=== PATIENT | male | born 1935 | race Caucasian/White ===

== ENCOUNTER 2018-12-12 18:25 | Inpatient (IN) ==
[2018-12-12 19:21] LABS: ALLEN TEST YES; BE -3.3 mmoll (-3.0-3.0); BLOOD TYPE ARTERIAL; HCO3-(ACT) 22.3 mmoll (20.0-26.0); METHB 1.4 % (0.0-1.5); O2(CT) 22.2 mL/dL (15.0-23.0); O2HB 96.9 % (95.0-99.0); PCO2(98.6) 48 mmHg (35-45); PO2(98.6) 277 mmHg (60-100); SAMPLE BLOOD; SAO2 99.4 % (95.0-100.0); THB 15.8 g/dL (11.5-17.4)
[2018-12-12 19:22] LABS: MODALITY NRB
--- NOTE | 2018-12-12 19:42 | Diag Imaging Result Doc PS360 ---
EXAM: CHEST-2 VIEWS HISTORY: SOB/CP TECHNIQUE: Chest two views COMPARISON: 06/02/2018 FINDINGS: The lungs are hyperexpanded. The heart is not enlarged. There are increased interstitial markings throughout both lungs. There are small pleural effusions. Left hemidiaphragm is elevated. IMPRESSION: Mild pulmonary edema with small pleural effusions Electronically signed by Devang Gamboa 12/12/2018 7:39 PM
[2018-12-12 20:09] LABS: BASO# 0.04 X1000 (0.0-0.2); BASO% 0.2 % (0.0-0.8); HEMATOCRIT 48.4 % (42.0-52.0); HEMOGLOBIN 15.4 g/dL (14.0-18.0); IMM GRAN# 0.47 X1000 (0.0-0.04); IMM GRAN% 2.1 % (0.0-0.5); LYMPH# 0.76 X1000 (1.2-3.4); LYMPH% 3.4 % (20.5-51.1); MCH 30.2 PG (27-31); MCHC 31.8 g/dL (33-37); MCV 94.9 FL (81-99); MONO# 0.71 X1000 (0.11-0.59); MONO% 3.1 % (1.7-9.3); MPV 10.5 FL (7.4-10.4); NEUT# 20.58 X1000 (1.4-6.5); NEUT% 91.2 % (42.2-75.2); PLT 334 X1000 (130-400); RDW 15.4 % (11.5-14.5); WBC 22.56 X1000 (4.8-10.8)
[2018-12-12 20:12] LABS: INR 0.97; PROTIME 13.7 Seconds (11.0-16.0)
[2018-12-12] MEDS ORDERED: ROCEPHIN 1 GM in NS 50 ML IV ONE (20:15)
[2018-12-12] MEDS ORDERED: LASIX IV ONE (20:16)
[2018-12-12] MEDS ORDERED: LABETALOL IV ONE (20:17)
[2018-12-12] MEDS ORDERED: NITROGLYCERIN TOP ONE (20:17)
[2018-12-12 20:27] LABS: ALB/GLOB RATIO 1.5; ALBUMIN 3.9 g/dL (3.5-5.0); CALCIUM 9.1 mg/dL (8.8-10.2); CREATININE 2.6 mg/dL (0.7-1.2); POTASSIUM 4.6 mmol/L (3.5-5.1); TOTAL BILIRUBIN 0.66 mg/dL (0.20-1.00); TOTAL PROTEIN 6.5 g/dL (6.3-8.3)
[2018-12-12] MEDS ORDERED: ASPIRIN PO ONE (20:42)
[2018-12-12 23:36] LABS: URINE SOURCE CATH
[2018-12-12 23:39] LABS: BILIRUBIN URINE NEGATIVE (NEGATIVE); BLOOD URINE SMALL (NEGATIVE); COLOR YELLOW; GLUCOSE URINE NEGATIVE (NEGATIVE); KETONE URINE NEGATIVE (NEGATIVE); LEUKOCYTES URINE NEGATIVE (NEGATIVE); NITRITE URINE NEGATIVE (NEGATIVE); PH URINE 5.5; PROTEIN URINE 200 mg/dL (NEGATIVE); SP GRAVITY URINE 1.009; TURBIDITY URINE CLEAR (CLEAR); UR EPITHELIAL CELLS <10 /HPF (<10); URINE BACTERIA NEGATIVE /HPF; URINE RBC <10 /HPF (<10); URINE WBC <10 /HPF (<10); UROBILINOGEN URINE NORMAL (NORMAL)
[2018-12-13 01:59] LABS: ACETAMINOPHEN < 1.2 ug/mL (10-30); SALICYLATES < 3.00 mg/dL (3-10)
[2018-12-13] MEDS ORDERED: LASIX IV SCH (02:09)
[2018-12-13] MEDS ORDERED: TYLENOL PO PRN (02:09)
[2018-12-13] MEDS ORDERED: ZOFRAN IV PRN (02:09)
[2018-12-13] MEDS ORDERED: TOPROL XL PO SCH (02:09)
[2018-12-13] MEDS: NITROGLYCERIN TOP SCH ×3 (02:34→19:49)
[2018-12-13] MEDS: ULTRAM PO PRN ×2 (02:35→16:27)
--- NOTE | 2018-12-13 02:43 | PROVIDER DOCUMENTATION ---
This chart was entered by Jaylin Jefferson Scribe, acting as scribe for Tessy Burgess MD. HPI-Respiratory General - General Chief Complaint: Shortness of Breath Stated Complaint: SOB, CP Time Seen by Provider: 12/12/18 19:51 Source: patient, family Allergies/Adverse Reactions: Patient Allergies Allergy/AdvReac Type Severity Reaction Status Date / Time Latex, Natural Rubber Allergy Unknown Verified 12/13/18 02:11 Home Medications: Home Medication List Medication Instructions Recorded Confirmed Last Taken Type Docusate Sodium [Colace] 100 mg PO QHS 06/02/18 06/02/18 05/31/18 22:00 History Fenofibrate Nanocrystallized 145 mg PO DAILY 06/02/18 06/02/18 Unknown History [Tricor] Gabapentin 100 mg PO QHS 06/02/18 06/02/18 05/31/18 22:00 History Prednisone 10 mg PO DAILY 06/02/18 06/02/18 06/01/18 07:00 History Amiodarone [Cordarone] 400 mg PO BID tablet 06/07/18 Unknown Rx Amlodipine [Norvasc] 5 mg PO DAILY tablet 06/07/18 Unknown Rx Aspirin 81 mg PO DAILY chewtab 06/07/18 Unknown Rx Losartan [Cozaar] 50 mg PO DAILY tablet 06/07/18 Unknown Rx Metoprolol [Lopressor] 25 mg PO Q8HR tablet 06/07/18 Unknown Rx Multivitamin with Minerals 5 ml PO DAILY bottle 06/07/18 Unknown Rx [Eldertonic] Quetiapine [Seroquel] 50 mg PO QHS tablet 06/07/18 Unknown Rx Thiamine [Vitamin B-1] 100 mg PO DAILY tablet 06/07/18 Unknown Rx Tramadol HCl 50 mg PO BID PRN #0 06/07/18 06/02/18 06/01/18 13:00 Rx - History of Present Illness-Resp Nature of Presenting Problem: 83 yom presents w/family w/ c/o family historian and at bedside. 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 family state pt is sob and has been since last night, mild lower cp 3/10, and swelling bilat feet and lower legs. pt has hx of ckd, spinal stenosis, and htn. family states pt was seen by pcp, Dr. Sharp today and was given compression socks and rx for water pills. Quality of Pain: reports: aching Severity in ED: reports: mild Onset/Duration: reports: last night Timing: reports: still present Review of Systems - Adult - REVIEW OF SYSTEMS - ADULT ROS:: ROS per family Constitutional: reports: no symptoms reported. denies: chills, fever, fatique Eyes: reports: no symptoms reported Ears, Nose, Mouth & Throat: reports: no symptoms reported. denies: hoarseness, throat pain, throat swelling Cardiovascular: reports: see HPI, chest pain (minimal). denies: heart murmur, irregular heart rate, orthopnea Respiratory: reports: see HPI, shortness of breath. denies: chronic cough, cough, pleurisy, wheezing Gastrointestinal: reports: no symptoms reported. denies: abdominal pain, diarrhea, nausea, vomiting Genitourinary: reports: no symptoms reported Musculoskeletal: reports: no symptoms reported Integumentary: reports: no symptoms reported Neurological: reports: no symptoms reported Past History - Adult - PAST MEDICAL HISTORY-ADULT Review of Records: reports: Old Records Reviewed, Nursing Assessment Review, Medications Reviewed, Social history reviewed & non-contributory. Major Childhood Illnesses: reports: denies history Cardiovascular: reports: arrhythmia, HTN, hyperlipidemia Respiratory: reports: denies history Gastrointestinal: reports: denies history Obstetrical/Gynecological: reports: denies history Genitourinary: reports: kidney disease, prostate cancer Musculoskeletal: reports: chronic pain Neurological: reports: TIA Psychiatric: reports: anxiety Endocrine/Immune: reports: denies history Other Conditions: reports: denies history - PRIOR SURGERIES/PROCEDURES Surgical/Procedure History: reports: back/neck, other (prostrate and carotoid) - IMMUNIZATION STATUS Childhood Immunizations: See Nurse Assessment Flu Vaccine: See Nurse Assessment - FAMILY HISTORY Family History: reviewed, not pertinent - SOCIAL HISTORY Smoking: quit greater than 1 year, cigarettes, chew (cigs) Substance Use: alcohol Alcohol Use Frequency: occasionally Physical Exam-General - PHYSICAL EXAM-ADULT Initial Vital Signs Reviewed: Yes - CONSTITUTIONAL General Appearance: alert, mild distress, other (Non rebreather in place). negative: slow to respond, obtunded, combative - EYES Eyes: PERRL/EOMI - HEAD, EARS, NOSE, MOUTH & THROAT HENMT: normocephalic/atraumatic, moist mucous membranes, normal ENT inspection - NECK Neck: non-tender, full range of motion, supple - RESPIRATORY Respiratory: crackles (B/L lower lung field). negative: lungs clear, respiratory distress, decreased breath sounds, accessory muscle use, wheezing - CARDIOVASCULAR Cardiovascular: normal peripheral pulses, no gallop, no murmur, JVD, tachycardia , other (bp high 210/128 at 1838). negative: regular rate, rhythm - GASTROINTESTINAL (ABDOMEN) Abdominal Exam: normal bowel sounds, non tender, soft - MUSCULOSKELETAL Back Exam: normal inspection, no CVA tenderness, no vertebral tenderness Extremity: normal range of motion, non-tender, pedal edema (+3 up to below knee B/L) Peripheral Pulses: radial (R): 2+, radial (L): 2+ - SKIN Integumentary: normal turgor, swelling (bilat feet and lower legs), other (cold B/L LE and feet) - NEUROLOGIC Neurologic: grossly normal, no motor/sensory deficits - PSYCHIATRIC Psych/Mental Status: oriented x 3 Progress - PLAN OF CARE/RESULTS Progress/Plan/Lab Results: Vital Signs - 8 hr 12/12/18 18:40 12/12/18 18:50 12/12/18 19:00 Pulse Rate 121 H 109 H 108 H Respiratory Rate 17 23 Blood Pressure O2 Sat by Pulse Oximetry 99 99 100 12/12/18 19:01 12/12/18 19:06 12/12/18 19:10 Pulse Rate 107 H 105 H 108 H Respiratory Rate 20 Blood Pressure 206/107 161/121 O2 Sat by Pulse Oximetry 100 100 100 12/12/18 19:17 12/12/18 19:20 12/12/18 19:35 Pulse Rate 104 H 103 H 103 H Respiratory Rate 20 26 H 12 Blood Pressure 176/102 O2 Sat by Pulse Oximetry 100 100 100 12/12/18 19:40 12/12/18 19:48 12/12/18 19:50 Pulse Rate 102 H 103 H 103 H Respiratory Rate 21 20 14 Blood Pressure 179/107 O2 Sat by Pulse Oximetry 99 99 98 12/12/18 20:00 12/12/18 20:01 12/12/18 20:10 Pulse Rate 100 H 99 H 98 H Respiratory Rate 21 17 20 Blood Pressure 186/102 O2 Sat by Pulse Oximetry 100 100 100 12/12/18 20:20 12/12/18 20:28 12/12/18 20:30 Pulse Rate 96 H 95 H 95 H Respiratory Rate 23 24 22 Blood Pressure 165/93 O2 Sat by Pulse Oximetry 100 100 100 12/12/18 20:36 12/12/18 20:40 12/12/18 20:46 Pulse Rate 96 H 96 H 94 H Respiratory Rate 23 20 21 Blood Pressure 179/104 165/98 O2 Sat by Pulse Oximetry 100 100 100 12/12/18 20:50 12/12/18 21:00 12/12/18 21:10 Pulse Rate 89 115 H 95 H Respiratory Rate 18 27 H 16 Blood Pressure O2 Sat by Pulse Oximetry 100 100 100 12/12/18 21:16 12/12/18 21:20 12/12/18 21:30 Pulse Rate 93 H 92 H 90 Respiratory Rate Blood Pressure 180/108 O2 Sat by Pulse Oximetry 100 100 100 12/12/18 21:31 12/12/18 21:40 12/12/18 21:46 Pulse Rate 84 85 88 Respiratory Rate Blood Pressure 156/94 161/88 O2 Sat by Pulse Oximetry 99 99 96 12/12/18 21:50 12/12/18 22:00 12/12/18 22:01 Pulse Rate 87 89 88 Respiratory Rate Blood Pressure 175/103 O2 Sat by Pulse Oximetry 98 98 98 12/12/18 22:10 12/12/18 22:20 12/12/18 22:30 Pulse Rate 87 93 H 86 Respiratory Rate Blood Pressure O2 Sat by Pulse Oximetry 100 94 L 99 12/12/18 22:31 12/12/18 22:40 12/12/18 22:46 Pulse Rate 87 89 88 Respiratory Rate Blood Pressure 168/108 179/104 O2 Sat by Pulse Oximetry 100 99 94 L 12/12/18 22:50 12/12/18 23:00 12/12/18 23:01 Pulse Rate 88 84 106 H Respiratory Rate Blood Pressure 150/106 O2 Sat by Pulse Oximetry 100 100 100 12/12/18 23:10 12/12/18 23:16 12/12/18 23:20 Pulse Rate 83 87 85 Respiratory Rate Blood Pressure 166/110 O2 Sat by Pulse Oximetry 94 L 99 100 12/12/18 23:21 12/12/18 23:30 12/12/18 23:31 Pulse Rate 88 85 86 Respiratory Rate Blood Pressure 169/103 176/97 O2 Sat by Pulse Oximetry 99 100 99 12/12/18 23:40 12/12/18 23:46 12/12/18 23:50 Pulse Rate 89 89 86 Respiratory Rate Blood Pressure 186/117 O2 Sat by Pulse Oximetry 98 99 99 12/13/18 00:00 12/13/18 00:01 12/13/18 00:10 Pulse Rate 84 83 86 Respiratory Rate Blood Pressure 170/92 O2 Sat by Pulse Oximetry 100 100 100 12/13/18 00:16 12/13/18 00:20 12/13/18 00:30 Pulse Rate 93 H 91 H 95 H Respiratory Rate Blood Pressure 175/125 O2 Sat by Pulse Oximetry 98 98 99 12/13/18 00:40 12/13/18 00:46 12/13/18 00:50 Pulse Rate 93 H 90 89 Respiratory Rate Blood Pressure 203/153 O2 Sat by Pulse Oximetry 98 96 99 12/13/18 01:00 12/13/18 01:01 12/13/18 01:03 Pulse Rate 86 84 86 Respiratory Rate Blood Pressure 201/124 200/110 O2 Sat by Pulse Oximetry 100 100 100 12/13/18 01:10 Pulse Rate 105 H Respiratory Rate Blood Pressure O2 Sat by Pulse Oximetry 99 Laboratory Results - last 24 hr 12/12/18 12/12/18 12/12/18 19:09 19:49 19:49 WBC 22.56 H RBC 5.10 Hgb 15.4 Hct 48.4 MCV 94.9 MCH 30.2 MCHC 31.8 L RDW Std Deviation 15.4 H Plt Count 334 MPV 10.5 H Immature Gran % (Auto) 2.1 H Neut % (Auto) 91.2 H Lymph % (Auto) 3.4 L [place] % (Auto) 3.1 Eos % (Auto) 0.0 Baso % (Auto) 0.2 Immature Gran # (Auto) 0.47 H Neut # (Auto) 20.58 H Lymph # (Auto) 0.76 L [place] # (Auto) 0.71 H Eos # (Auto) 0.00 Baso # (Auto) 0.04 PT INR PTT (Actin FS) Specimen Type ARTERIAL Sample Site R RADIAL pH 7.30 L pCO2 48 H pO2 277 H HCO3 22.3 Base Excess -3.3 L Oxyhemoglobin 96.9 ABG O2 Sat (Calculated) 22.2 ABG O2 Saturation 99.4 ABG Carboxyhemoglobin 1.10 ABG Methemoglobin 1.4 Andrei Test YES A-a O2 Difference 376.0 Total Hemoglobin 15.8 Lactate 1.30 Liter Flow 15.0 Blood Gas Modality NRB FiO2 % 100.0 Sodium 146 H Potassium 4.6 Chloride 108 H Carbon Dioxide 23 L Anion Gap 15 BUN 40 H Creatinine 2.6 H Estimated GFR/1.73 m2 24 BUN/Creatinine Ratio 15 Glucose 148 H Estimat Average Glucose Hemoglobin A1c Calculated Osmolality 303 Calcium 9.1 Magnesium Total Bilirubin 0.66 AST 39 H ALT 27 Alkaline Phosphatase 66 Creatine Kinase 104 Troponin T Age-X-Qkxbnebthgq Pept Total Protein 6.5 Albumin 3.9 Globulin 2.6 Albumin/Globulin Ratio 1.5 Urine Source Urine Color Urine Turbidity Urine pH Ur Specific [place] Urine Protein Ur Glucose (Stick) Ur Ketones (Stick) Urine Blood Urine Nitrite Urine Bilirubin Urobilinogen Dipstick Urine Leukocytes Urine WBC (Auto) Urine RBC (Auto) U Epithel Cells (Auto) Urine Bacteria (Auto) Salicylates Acetaminophen 12/12/18 12/12/18 12/12/18 19:49 19:49 19:49 WBC RBC Hgb Hct MCV MCH MCHC RDW Std Deviation Plt Count MPV Immature Gran % (Auto) Neut % (Auto) Lymph % (Auto) [place] % (Auto) Eos % (Auto) Baso % (Auto) Immature Gran # (Auto) Neut # (Auto) Lymph # (Auto) [place] # (Auto) Eos # (Auto) Baso # (Auto) PT 13.7 INR 0.97 PTT (Actin FS) 25.0 Specimen Type Sample Site pH pCO2 pO2 HCO3 Base Excess Oxyhemoglobin ABG O2 Sat (Calculated) ABG O2 Saturation ABG Carboxyhemoglobin ABG Methemoglobin Andrei Test A-a O2 Difference Total Hemoglobin Lactate Liter Flow Blood Gas Modality FiO2 % Sodium Potassium Chloride Carbon Dioxide Anion Gap BUN Creatinine Estimated GFR/1.73 m2 BUN/Creatinine Ratio Glucose Estimat Average Glucose Hemoglobin A1c Calculated Osmolality Calcium Magnesium Total Bilirubin AST ALT Alkaline Phosphatase Creatine Kinase Troponin T 0.179 H Tnx-G-Bmuktycfjau Pept 91849 H Total Protein Albumin Globulin Albumin/Globulin Ratio Urine Source Urine Color Urine Turbidity Urine pH Ur Specific [place] Urine Protein Ur Glucose (Stick) Ur Ketones (Stick) Urine Blood Urine Nitrite Urine Bilirubin Urobilinogen Dipstick Urine Leukocytes Urine WBC (Auto) Urine RBC (Auto) U Epithel Cells (Auto) Urine Bacteria (Auto) Salicylates Acetaminophen 12/12/18 12/12/18 12/12/18 19:49 21:15 22:45 WBC RBC Hgb Hct MCV MCH MCHC RDW Std Deviation Plt Count MPV Immature Gran % (Auto) Neut % (Auto) Lymph % (Auto) [place] % (Auto) Eos % (Auto) Baso % (Auto) Immature Gran # (Auto) Neut # (Auto) Lymph # (Auto) [place] # (Auto) Eos # (Auto) Baso # (Auto) PT INR PTT (Actin FS) Specimen Type Sample Site pH pCO2 pO2 HCO3 Base Excess Oxyhemoglobin ABG O2 Sat (Calculated) ABG O2 Saturation ABG Carboxyhemoglobin ABG Methemoglobin Andrei Test A-a O2 Difference Total Hemoglobin Lactate Liter Flow Blood Gas Modality FiO2 % Sodium Potassium Chloride Carbon Dioxide Anion Gap BUN Creatinine Estimated GFR/1.73 m2 BUN/Creatinine Ratio Glucose Estimat Average Glucose 126 Hemoglobin A1c 6.0 Calculated Osmolality Calcium Magnesium Total Bilirubin AST ALT Alkaline Phosphatase Creatine Kinase Troponin T 0.181 H Gss-Z-Mxrlmgyisse Pept Total Protein Albumin Globulin Albumin/Globulin Ratio Urine Source CATH Urine Color YELLOW Urine Turbidity CLEAR Urine pH 5.5 Ur Specific [place] 1.009 Urine Protein 200 A Ur Glucose (Stick) NEGATIVE Ur Ketones (Stick) NEGATIVE Urine Blood SMALL A Urine Nitrite NEGATIVE Urine Bilirubin NEGATIVE Urobilinogen Dipstick NORMAL Urine Leukocytes NEGATIVE Urine WBC (Auto) <10 Urine RBC (Auto) <10 U Epithel Cells (Auto) <10 Urine Bacteria (Auto) NEGATIVE Salicylates Acetaminophen 12/12/18 22:45 WBC RBC Hgb Hct MCV MCH MCHC RDW Std Deviation Plt Count MPV Immature Gran % (Auto) Neut % (Auto) Lymph % (Auto) [place] % (Auto) Eos % (Auto) Baso % (Auto) Immature Gran # (Auto) Neut # (Auto) Lymph # (Auto) [place] # (Auto) Eos # (Auto) Baso # (Auto) PT INR PTT (Actin FS) Specimen Type Sample Site pH pCO2 pO2 HCO3 Base Excess Oxyhemoglobin ABG O2 Sat (Calculated) ABG O2 Saturation ABG Carboxyhemoglobin ABG Methemoglobin Andrei Test A-a O2 Difference Total Hemoglobin Lactate Liter Flow Blood Gas Modality FiO2 % Sodium Potassium Chloride Carbon Dioxide Anion Gap BUN Creatinine Estimated GFR/1.73 m2 BUN/Creatinine Ratio Glucose Estimat Average Glucose Hemoglobin A1c Calculated Osmolality Calcium Magnesium 2.0 Total Bilirubin AST ALT Alkaline Phosphatase Creatine Kinase Troponin T Sok-V-Fbupfknzurc Pept Total Protein Albumin Globulin Albumin/Globulin Ratio Urine Source Urine Color Urine Turbidity Urine pH Ur Specific [place] Urine Protein Ur Glucose (Stick) Ur Ketones (Stick) Urine Blood Urine Nitrite Urine Bilirubin Urobilinogen Dipstick Urine Leukocytes Urine WBC (Auto) Urine RBC (Auto) U Epithel Cells (Auto) Urine Bacteria (Auto) Salicylates < 3.00 L Acetaminophen < 1.2 L Orders Category Date Time Status [facility] Routine AdmDCTranf 12/13/18 02:09 Active Activity - Up with Assistance ORDERED Care 12/13/18 02:09 Active Apply Mechanical Device [QM] ORDERED Care 12/13/18 02:09 Active Cardiac Monitoring DIRECTED Care 12/12/18 19:07 Completed Intake and Output-Strict ORDERED Care 12/13/18 02:09 Active Notify Primary MD of Admission ONCE Care 12/13/18 07:00 Active Nursing- Assist w/ IS as order [id number] Care 12/13/18 02:09 Active Nursing- MD Consult Request ROUTINE Care 12/13/18 02:09 Active Oxygen Therapy- ED Nursing DIRECTED Care 12/12/18 19:07 Completed Saline Loc NOW Care 12/12/18 19:07 Completed Vital Signs Order Q 4-HR ASSESS Care 12/13/18 02:09 Active Z-Document. for Tele Applied ORDERED Care 12/13/18 02:09 Active Physician/Provider Consults Routine Cons 12/13/18 07:00 Ordered Physician/Provider Consults Routine Cons 12/13/18 07:00 Ordered Heart Healthy Diet Diet 12/13/18 02:09 Active CHEST-2 VIEWS [RAD] Stat Exams 12/12/18 19:07 Completed A1C HGB W EST AVG GLUCOSE [CHEM] Stat Lab 12/13/18 01:13 Completed ABG [RESP] Routine Lab 12/12/18 19:09 Completed ACETAMINOPHEN [TDM] Stat Lab 12/13/18 01:13 Completed CBC WITH DIFF [HEME] Routine Lab 12/13/18 06:00 Ordered CBC WITH ELECTRONIC DIFF [HEME] Stat Lab 12/12/18 19:49 Completed CK PROFILE [SP CHEM] Q8H Lab 12/13/18 06:00 Ordered CK PROFILE [SP CHEM] Q8H Lab 12/13/18 14:00 Ordered CK PROFILE [SP CHEM] Q8H Lab 12/13/18 22:00 Ordered CK PROFILE [SP CHEM] Stat Lab 12/12/18 19:49 Completed COMPREHENSIVE METABOLIC PANEL [CHEM] Routine Lab 12/13/18 06:00 Ordered COMPREHENSIVE METABOLIC PANEL [CHEM] Stat Lab 12/12/18 19:49 Completed MAGNESIUM [CHEM] Routine Lab 12/13/18 06:00 Ordered MAGNESIUM [CHEM] Stat Lab 12/13/18 01:13 Completed PRO B-NATRIURETIC PEPTIDE Stat Lab 12/12/18 19:49 Completed PROTIME WITH INR [COAG] Stat Lab 12/12/18 19:49 Completed PTT [COAG] Stat Lab 12/12/18 19:49 Completed SALICYLATES [TDM] Stat Lab 12/13/18 01:13 Completed TROPONIN T Q8H Lab 12/13/18 06:00 Ordered TROPONIN T Q8H Lab 12/13/18 14:00 Ordered TROPONIN T Q8H Lab 12/13/18 22:00 Ordered TROPONIN T Stat Lab 12/12/18 19:49 Completed TROPONIN T Stat Lab 12/12/18 22:45 Completed UA [URINALYSIS W/POSS RFLX CULT] [URINALYSIS] Stat Lab 12/12/18 21:15 Completed Acetaminophen [Tylenol] Med 12/13/18 02:09 Active 650 mg PO Q6H PRN PRN Amlodipine [Norvasc] Med 12/13/18 02:09 Active 5 mg PO BID Aspirin Med 12/12/18 20:42 Discontinued 325 mg PO NOW ONE CefTRIAXONE [Rocephin] 1 gm Med 12/12/18 20:15 Discontinued 0.9% Sodium Chloride Inj [Ns] 50 ml IV NOW Furosemide [Lasix] Med 12/12/18 20:16 Discontinued 40 mg IV NOW ONE Furosemide [Lasix] Med 12/13/18 02:09 Active 40 mg IV Q8H Labetalol Med 12/12/18 20:17 Discontinued 5 mg IV NOW ONE Metoprolol Succinate E.r. [Toprol Xl] Med 12/13/18 02:09 Active 25 mg PO BID Nitroglycerin Med 12/12/18 20:17 Discontinued 1 inch TOP NOW ONE Nitroglycerin Med 12/13/18 02:09 Active 1 inch TOP Q8H Ondansetron [Zofran] Med 12/13/18 02:09 Active 4 mg IV Q8H PRN PRN Thiamine [Vitamin B-1] Med 12/13/18 09:00 Ordered 100 mg PO DAILY Tramadol [Ultram] Med 12/13/18 02:09 Active 50 mg PO Q12H PRN PRN Incentive Spirometer Routine Oth 12/13/18 02:09 Active Oxygen Device Routine Oth 12/13/18 02:09 Active Pulse Oximetry Routine Oth 12/13/18 02:09 Active Telemetry [OM.EQ] Routine Oth 12/13/18 02:09 Active EKG [EKG] Routine Ther 12/13/18 08:00 Ordered EKG [EKG] Stat Ther 12/12/18 19:07 Ordered Transfer/Admit Order [TRANSFER] Routine Transfer 12/12/18 23:32 Completed Result Diagrams: 12/12/18 19:49 12/12/18 19:49 - EKG 1 Time of EKG reading by physician:: 18:31 EKG Read and Signed by:: Brandon Vallejo EKG Interpretation (*Must complete 3 of following elements*): Abnormal Rate: 119 (left anterior fascicular block) Rhythm: ST QRS: RBB, LVH (lvh w/ repolarization abnormality) DC Interval: normal Comments: Bifascicular block,cannot rule out anteroseptal infarct, age undetermined - XRAY 1 XRAY: Bilateral XRAY Study: Chest ( EXAM: CHEST-2 VIEWS HISTORY: SOB/CP TECHNIQUE: Chest two views COMPARISON: 06/02/2018 FINDINGS: The lungs are hyperexpanded. The heart is not enlarged. There are increased interstitial markings throughout both lungs. There are small pleural effusions. Left hemidiaphragm is elevated. IMPRESSION: Mild pulmonary edema with small pleural effusions Electronically signed by Devang Gamboa 12/12/2018 7:39 PM) Impression: Abnormal Comparison with other Films: changes noted - CONSULTS/PCP/HOSPITALIST Notification #1 *Consult/PCP/Hospitalist*: Dr. Ritter Time Discussed: 00:34 Consult Disposition: Admit (Hx, PE and patient care discussed, accepted.) Departure - Departure Date of Disposition Decision: 12/13/18 Time of Disposition Decision: 00:34 DIAGNOSIS: Elevated troponin Pulmonary edema Qualifiers: Chronicity: acute Qualified Code(s): J81.0 - Acute pulmonary edema Leukocytosis Qualifiers: Leukocytosis type: other Qualified Code(s): D72.828 - Other elevated white blood cell count Disposition: ADMITTED INPATIENT 09 Certified Medical Emergency: Emergent Condition: Stable - Critical Care Note This patient required my direct & personal management of CC.: No Attestation - Physician/ CORINA Attestation Patient care was provided by Advanced Practice Provider:: No The physician spent face to face time with patient:: Yes Advanced Practice Provider documentation review:: Supervising physician onsite and consulted in the evaluation and care of this patient. The physician did have a face to face encounter with the patient. This chart was documented by the indicated scribe, (Jaylin Jefferson Scribe) and accurately reflects the services I performed and decisions made by me, Tessy Burgess MD, as attested by the provider's signature.
[2018-12-13] MEDS: NORVASC PO SCH ×2 (03:25→10:53)
[2018-12-13 05:38] LABS: BASO# 0.02 X1000 (0.0-0.2); BASO% 0.1 % (0.0-0.8); EOS# 0.01 X1000 (0.0-0.7); EOS% 0.1 % (0.0-10.0); HEMOGLOBIN 15.2 g/dL (14.0-18.0); IMM GRAN# 0.28 X1000 (0.0-0.04); IMM GRAN% 1.5 % (0.0-0.5); LYMPH# 0.66 X1000 (1.2-3.4); LYMPH% 3.5 % (20.5-51.1); MCH 30.5 PG (27-31); MCHC 32.3 g/dL (33-37); MCV 94.2 FL (81-99); MONO% 6.4 % (1.7-9.3); MPV 10.6 FL (7.4-10.4); NEUT# 16.68 X1000 (1.4-6.5); NEUT% 88.4 % (42.2-75.2); PLT 302 X1000 (130-400); RBC 4.99 XMIL (4.7-6.1); RDW 15.5 % (11.5-14.5); WBC 18.85 X1000 (4.8-10.8)
[2018-12-13 06:22] LABS: ALB/GLOB RATIO 1.6; ALBUMIN 3.9 g/dL (3.5-5.0); CALCIUM 9.3 mg/dL (8.8-10.2); CREATININE 2.4 mg/dL (0.7-1.2); POTASSIUM 4.1 mmol/L (3.5-5.1); TOTAL BILIRUBIN 0.75 mg/dL (0.20-1.00); TOTAL PROTEIN 6.4 g/dL (6.3-8.3)
--- NOTE | 2018-12-13 07:24 | HISTORY AND PHYSICAL ---
ADDENDUM: Mr. Alicia Peterson is an 83-year-old with male past medical history of atrial fibrillation, hypertensive heart disease and chronic low back pain. He was recently prescribed Medrol Dosepak over a week ago which he just completed. He has also been taking in addition to that, celz-oyg-rhfjntq Aleve to alleviate his low back pain. Not too long ago, patient was admitted because he was inappropriately taking his stronger opioid medication because he was confused and since then he has been cut off from taking such medications. The patient does voice concern that his pain has gotten worse since then and that is the reason why he has been taking excessive Aleve. The patient has also been complaining of shortness of breath, leg swelling and some PND and cough consistent with CHF. Exam shows 2 to 3+ pitting edema of the lower extremities with peripheral cyanosis and barely any palpable pulses in his distal lower extremities which are cool to touch. No JVD noted. Abdomen slightly protuberant. Chest is clear. 1st and 2nd heart sounds are heard. No gallops, murmurs, rubs. In hind site, I do think the combination of steroids and NSAIDs have culminated in this patient retaining a lot of salt and water. Hence, has a mild pulmonary edema and lower extremity edema. I would just suggest to Dr. Sharp that the patient may benefit from very low-dose fentanyl patch 12 mcg every 72 hours under lock and alanis and supervision, in addition to the other pain medications so they can just take the edge off his pain so he does not have to resort to taking an inordinate amount of Aleve which can cause the patient to induce exacerbation of CHF. cc: Samantha Ritter MD [facility]GERYRuben
--- NOTE | 2018-12-13 07:25 | EKG Report ---
Test Performed on : 12/13/2018 06:32:59 AM Test Reason : CHF Exacerbation Blood Pressure : / mmHG Vent. Rate : 083 BPM Atrial Rate : 083 BPM P-R Int : 158 ms QRS Dur : 136 ms QT Int : 382 ms P-R-T Axes : 063 -58 139 degrees QTc Int : 448 ms Normal sinus rhythm. Right bundle branch block Left anterior fascicular block Bifascicular block Voltage criteria for left ventricular hypertrophy Cannot rule out Anteroseptal infarct (cited on or before 26-JAN-2016) T wave abnormality, consider lateral ischemia Abnormal ECG When compared with ECG of 12-DEC-2018 21:20, (Unconfirmed) premature atrial complexes. are no longer present Questionable change in initial forces of Septal leads QT has shortened Confirmed by Inocencia JEAN BAPTISTE, Ryan ([id number]) on 12/13/2018 8:58:37 AM
[2018-12-13] MEDS ORDERED: ASPIRIN PO SCH (09:00)
--- NOTE | 2018-12-13 09:48 | HISTORY AND PHYSICAL ---
PRIMARY CARE PHYSICIAN: Dr. Rene Sharp. STAFF SCIENTIST: Dr. Palm. CHIEF COMPLAINT: Shortness of breath. HISTORY OF PRESENT ILLNESS: Mr. Peterson is an 83-year-old male who has a past medical history of atrial fibrillation, hypertension, hyperlipidemia, CVA, carotid artery disease, and chronic low back pain. The patient as well as his 2 sons who were at bedside reported that for a couple of weeks now he has had worsening swelling in his bilateral lower extremities. They also state that he has had increasing shortness of breath with exertion. The patient states that he does have to sit up to sleep though this is somewhat related to his chronic low back pain, though he states that he has noticed that he has been getting short of breath when he reclines back more. He is reporting orthopnea as just mentioned, paroxysmal nocturnal dyspnea, and dyspnea upon exertion. He states that when he becomes short of breath he has been having occasional chest pain that is in the center of his chest, is nonradiating, and he states that the pain just takes his breath away. The patient does have a history of having atrial fibrillation. Though his home medication list has not been reconciled yet, it does look like he takes rate control medications of metoprolol and amiodarone. It was noted in a cardiology progress note from his most recent admission in May and June of 2018 that they did not think the patient was a good candidate for anticoagulation secondary to he is a high fall risk. Upon further investigation, the patient does have chronic low back pain for which he previously took oxycodone, though due to some possible accidental over-medication use for which he may have reportedly been mixing with alcohol, he did have some hallucinations and confusion. This is one of the reasons why he was admitted in late 2018. They have taken him off of this medicine, and he has been on Ultram and has been substituting [id number] medicines of a couple of pills of Tylenol and a couple of pills of Aleve a day. He also has been receiving steroids to help with his pain, as well. He was taking 10 mg p.o. daily of prednisone though they did recently hold this, place him on a steroid pack, and he is to start his 10 mg of prednisone daily back in the next day or two. It could be that the patient's combination use of his steroids along with Aleve may be affecting his kidneys as well as is causing him to retain fluid. The patient also reports that he has had some decrease in his normal urine output, as well. He also reports that along with the swelling in his bilateral lower extremities that for approximately a week now he has had discoloration to his toes and heels of his feet. The patient states that he previously has had vascular studies of his bilateral lower extremities in January of 2016. An arterial study of bilateral lower extremities showed digital vessel disease. Upon evaluation in the ER, the patient's initial vital signs were temperature 98.3, heart rate 113, respirations 28, blood pressure was 210/134, oxygen saturation was 93% on a nonrebreather, though since that time he has been back down to a nasal cannula at 4 L and has been maintaining oxygen saturations of 99% to 100%. His blood pressure has also improved as well as his heart rate after being given labetalol, Lasix, and nitroglycerin. Diagnostic studies showed that he did have an elevated white blood cell count of 22,560, though he denies any cough, fever, body aches or chills or dysuria. He denies any abdominal pain, nausea, vomiting, or diarrhea. He has had recent steroid use. This could be secondary to that. His chemistries revealed that he does have acute on chronic kidney disease. He did have a proBNP of 28,306. His troponins were also elevated, as well, though he does have an acute kidney injury. He is denying any chest pain at present, and upon review of his EKG which showed sinus rhythm at this time with premature atrial complexes, a right bundle-branch block and a left anterior fascicular block, there did not appear to be any acute changes when compared to his EKG from June of 2018. At this time the patient will be admitted for further treatment and evaluation. REVIEW OF SYSTEMS: A 14-point review of systems was conducted with the patient. The patient denies any headache. He does report some visual changes, though he does have a history of cataract surgery, a retinal artery occlusion and does wear glasses, though he states there were no acute changes. He denies any cough, abdominal pain, nausea, vomiting, or diarrhea. His last bowel movement was yesterday. He denies any hematochezia or melena. He denies any dysuria, though does report he has had some decrease in his usual urine output. As previously mentioned, he also reports that he has chronic low back pain and does have new onset swelling in his bilateral lower extremities as well as discoloration of his toes and heels of bilateral feet. PAST MEDICAL HISTORY: 1. Hypertension. 2. Hyperlipidemia. 3. Carotid artery disease with a history of a carotid endarterectomy. 4. History of central retinal artery occlusion. 5. Cataracts. 6. Prostate carcinoma status post prostatectomy with 34 treatments of radiation. 7. Nephrolithiasis. 8. Lumbar spinal stenosis as well as herniated disk and degenerative disk disease. 9. History of old right parietal infarct for which the patient states that the only residual deficit from this stroke was some residual numbness in his left hand. 10. Atrial fibrillation with rate control medications of metoprolol and amiodarone, though it was noted in his admission of June 2018 the patient was deemed not a candidate for anticoagulation due to his high fall risk. PAST SURGICAL HISTORY: 1. Prostatectomy. 2. Low back surgery. 3. Carotid endarterectomy. 4. Cataract surgery bilaterally. 5. Surgery for repair of a retinal artery occlusion in his right eye. SOCIAL HISTORY: The patient is a former smoker. He quit smoking many years ago. There is some occasional alcohol use with reported previous more frequent alcohol use in the past. There is no known illicit drug use. His 2 sons at bedside state that the patient's back pain unfortunately was increasing, and they had placed him on oxycodone, and they stated that he was mixing the alcohol with oxycodone which caused him to have some acute confusion and hallucinations, though they state since that time he is not drinking as much as he previously did. The patient reports the last time he had any alcohol was a beer a few weeks ago and that he only has one drink at a time. He does live at home by himself, though his 2 sons do check on him frequently. They did state today that they have hired 2 sitters to come in hopefully a couple of times a week if not more frequently to help with his medicines and to check on him. FAMILY HISTORY: Family history is positive for his mother having a history of coronary artery disease. His father had a history of prostate cancer. ALLERGIES: The patient has allergies to latex, stating that it causes him to have skin irritation and rash. HOME MEDICATIONS: We are awaiting the patient's home medications to be verified, though we do know, as previously mentioned, that he does take Ultram for pain, prednisone, and his prednisone had recently been held, and he did just finish a Medrol Dosepak and was to start his prednisone back in the next day or two. He also reported that he had been using [id number] medications of a couple of pills or more a day of Aleve and Tylenol. DIAGNOSTIC STUDIES: White blood cell count is 22,560, hemoglobin 15.4, hematocrit 48.4, platelet count is 334. PT 13.7, INR 0.97, PTT is 25. Sodium 146, potassium 4.6, chloride 108, serum bicarbonate is 23, BUN 40, creatinine 2.6 with a GFR of 24, a glucose of 148, calcium 9.1. Liver function tests within normal limits, though his AST is slightly elevated at 39. CK 104, troponin 0.179 with a repeat of 0.181. ProBNP was 28,306. Arterial blood gases were obtained on a nonrebreather at 100% FiO2 with a pH of 7.3, pCO2 of 48, pO2 of 277, HCO3 of 22.3 with a base excess of negative 3.3. O2 saturation of 99.4. Urinalysis was obtained via catheter was positive for protein and a small amount of blood though was negative for glucose, ketones, nitrites, and bilirubin, leukocytes, white blood cells, or bacteria. EKG showed sinus rhythm with premature atrial complexes, possible left atrial enlargement, a right bundle-branch block, a left anterior fascicular block at a rate of 93 with a QTc of 527. Chest x-ray showed mild pulmonary edema with mild pleural effusions. This is per Radiology. PHYSICAL EXAMINATION: VITAL SIGNS: Temperature 98.3, heart rate is 87, respirations 20, blood pressure 166/110, oxygen saturation is 99% nasal cannula at 4 L. GENERAL: Mr. Peterson is a pleasant 83-year-old male who was resting in the ER stretcher. He was in no acute distress. He was alert and oriented to person, place, and time. He was able to answer questions appropriately, though his 2 sons did assist with answering of some past medical history. HEENT: Head atraumatic, normocephalic. Pupils are equal, round, reactive to light, were 3 mm bilaterally and brisk. Oral mucosa is moist. Oropharynx is clear. NECK: Supple, trachea midline. There may be some slight JVD noted upon examination. CARDIOVASCULAR: The patient has S1-S2 present. No murmurs, gallops, or rubs appreciated, with a regular rate and rhythm. PULMONARY: The patient has symmetrical chest expansion bilaterally. Lung sounds in bilateral upper mendoza were clear, though the patient did have very fine crackles noted in bilateral bases. ABDOMEN: Soft, does not appear to be distended. The patient does have a slightly protuberant abdomen noted. He did report some tenderness in the right mid abdominal area, though there was no rebound tenderness noted. Bowel sounds were present in all 4 quadrants, were normoactive. EXTREMITIES: There was no clubbing noted, though the patient does have 2+ to 3+ pitting edema noted in bilateral lower extremities from approximately mid calf down. He does have some cyanosis noted in his toes and heels of bilateral feet. His capillary refill is delayed at approximately 5, though pulses were difficult to palpate due to his swelling. With a venous Doppler, I was able to obtain a good dorsalis pedis in bilateral feet, though his posterior tibialis was not able to be obtained. Radial pulses are 2+ bilaterally. INTEGUMENTARY: Feet warm and dry except for previously mentioned discoloration/cyanosis noted to his toes and heels of bilateral feet. NEUROLOGICAL: The patient is alert and oriented to person, place, and time. He is able to answer questions appropriately. He is able to move all extremities. The patient does have some residual numbness in his left upper extremity from his previous stroke, but other than this, he does not have any new focal neurologic deficits noted. ASSESSMENT AND PLAN: 1. Congestive heart failure exacerbation. The patient has had a recent echocardiogram performed which was in July of 2018 for which he was noted to have an ejection fraction of 60%. He also had a myocardial perfusion scan performed at the same time which was noted to be within normal limits. There was no evidence of pharmacological-induced myocardial ischemia. There was normal left ventricle systolic function and no wall abnormalities. It looks as though he normally takes Lasix 20 mg twice a day orally. At this time, we have placed him with Lasix 40 mg IV q.8 h. We will do a series of cardiac enzymes, will repeat an EKG in the morning. We have placed a consult with Dr. Palm and will await his evaluation and further recommendations for management. He will be on a heart healthy diet. Will do strict intake and output and daily weights. The patient's heart failure exacerbation may have been brought on by his recent steroid use as well as his [id number] reported use of several Aleve daily. We will continue to follow his cardiovascular status closely. 2. Acute on chronic kidney disease. The patient does have what looks to be a baseline creatinine of anywhere from 1.9 to 2.1, though he has had an increase to 2.6 at this time. The patient reports that he has also noticed a decrease in his usual urine output. He does have symptoms as mentioned above. The patient has been reportedly taking Aleve, as well, up to several a day. This may be affecting his renal function. We will continue to monitor this closely. We will avoid nephrotoxic medications and renally dose medicines as necessary. 3. Hypertension. Will continue with his regularly prescribed medicines once reconciled, though we have added on Norvasc 5 mg p.o. b.i.d. as well as nitroglycerin topically. Since arriving to the ER, his blood pressure has continued to improve. 4. History of atrial fibrillation. The patient is in sinus rhythm with just showing occasional PACs. His rate is controlled. We will continue his regularly prescribed rate medicines. 5. Leukocytosis. This is of uncertain etiology. The patient at this time does not have a known source of infection. He does not have any fever. He denies any cough. He is not reporting any nausea, vomiting, diarrhea, or dysuria. The patient has had recent steroid use. This could be related to that. We will repeat a CBC in the morning and continue to follow. 6. Chronic low back pain. The patient has reported that he has been having increased pain. This is the reason he reports he has been taking several Tylenol and several Aleve daily. The patient may likely need his pain medications adjusted to better control his pain so that he does not use additional medicines such as Aleve over the counter. We will defer this for Dr. Sharp to decide what is best for the patient. 7. DVT prophylaxis will be provided with SCDs. The patient has been placed on the medical floor with telemetry. He will have vital signs q.4 h. Will do strict intake and output. He is on a healthy heart diet. Further orders and recommendations pending hospital course, diagnostic studies, and physician evaluation. cc: MD Rene Perez MD
[2018-12-13] MEDS: PREDNISONE PO SCH (10:53)
[2018-12-13] MEDS: CORDARONE PO SCH (10:53)
[2018-12-13] MEDS: VITAMIN B-1 PO SCH (10:53)
[2018-12-13] MEDS: ASPIRIN EC PO SCH (10:53)
[2018-12-13] MEDS: TRICOR PO SCH (10:53)
[2018-12-13] MEDS: TOPROL XL PO SCH (10:53)
--- NOTE | 2018-12-13 12:03 | EKG Report ---
Test Performed on : 12/12/2018 9:20:55 PM Test Reason : SOB/CP Blood Pressure : / mmHG Vent. Rate : 093 BPM Atrial Rate : 093 BPM P-R Int : 190 ms QRS Dur : 140 ms QT Int : 424 ms P-R-T Axes : 047 -61 088 degrees QTc Int : 527 ms Sinus rhythm. with premature atrial complexes. Possible Left atrial enlargement Right bundle branch block Left anterior fascicular block Bifascicular block Left ventricular hypertrophy Cannot rule out Septal infarct (cited on or before 26-JAN-2016) Abnormal ECG When compared with ECG of 04-JUN-2018 17:49, premature atrial complexes. are now present Questionable change in initial forces of Septal leads Nonspecific T wave abnormality no longer evident in Inferior leads Unconfirmed Result
[2018-12-13] MEDS: XANAX XR PO SCH (14:24)
--- NOTE | 2018-12-13 19:30 | CONSULTATION ---
DATE OF CONSULTATION: 12/13/2018 IMPRESSION: 1. Acute on chronic congestive heart failure with preserved left ventricular ejection fraction. Suspect excess sodium intake and chronic kidney disease stage 4 playing a significant role. 2. Dependent edema. Patient has difficulty lying flat due to problems with spinal stenosis prompting him to sleep with his feet in a dependent position quite often. 3. Hypertensive cardiovascular disease. 4. Chronic kidney disease stage 4. 5. Paroxysmal atrial fibrillation. Patient continues in sinus rhythm on low-dose amiodarone. 6. Prior cerebrovascular accident. 7. Atherosclerotic carotid disease. RECOMMENDATIONS: 1. Diurese with intravenous Lasix as you are doing. 2. Patient needs to elevate lower extremity to help improve dependent edema. 3. Patient counseled regarding need to avoid nonsteroidal anti-inflammatory medications and limit sodium intake. 4. Continue current cardiovascular regimen. Otherwise, unchanged including low-dose amiodarone. HISTORY: This 83-year-old white male with past history of paroxysmal atrial fibrillation, hypertensive cardiovascular disease, chronic kidney disease stage 4, hyperlipidemia, previous cerebrovascular accident, atherosclerotic carotid disease and spinal stenosis with chronic back and left hip pain was admitted with worsening shortness of breath and some orthopnea, as well as peripheral swelling. He has a considerable problem with chronic pain related to his back disorder. He is status post previous laminectomy for spinal stenosis and this improved his symptoms for a while. However, he has had problematic recurrence of lower back pain and left hip and left upper leg pain. Because of this he tends to sleep often in a chair, but is certainly unable to lie flat on a regular basis. He has also been taking some nonsteroidal anti- inflammatory medications, including Aleve lately. He has also received some corticosteroids for his back problem. He is in the habit of eating out quite often. In fact, probably the majority of the time and is not particularly good at limiting his sodium intake eating out. He has had problems in the past with excessive use of narcotics for his back disorder. He seems to have had some some transient improvement in his symptoms with injections to his lower back in the past and is scheduled to be considered for further injections in the near future. Over the last couple days he started having worsening shortness of breath as well as peripheral swelling. The last two nights he had tendency for shortness of breath when he tried to lie recumbent. There has been no chest pain. PAST MEDICAL HISTORY: 1. Hypertensive cardiovascular disease. 2. Chronic kidney disease stage 4. 3. Hyperlipidemia. 4. Previous cerebrovascular accident. 5. Carotid artery disease with previous carotid endarterectomy. 6. History of previous central retinal artery occlusion. 7. Atrial fibrillation. Patient continues in sinus rhythm on low dose amiodarone. He is not felt to be a suitable candidate for long-term anticoagulation by his treating a r collections rep due to tendency for falling. 8. Lumbar spinal stenosis as well as herniated disk and degenerative disk disease. 9. Previous cerebrovascular accident with right parietal infarct with very limited residual deficits. 10. Prostate carcinoma treated with prostatectomy and [*]34 treatments of radiation therapy. PAST SURGICAL HISTORY: 1. Includes prostatectomy. 2. Lower back surgery. 3. Carotid endarterectomy. 4. Bilateral cataract surgery. 5. Surgery for retinal [*]reclusion in his right eye. ALLERGIES: He is allergic or intolerant to latex. MEDICATIONS PRIOR TO ADMISSION: As listed. SOCIAL HISTORY: He quit smoking many years ago. He has an occasional alcoholic beverage. FAMILY HISTORY: Negative for premature coronary disease. REVIEW OF SYSTEMS: Pulmonary: Noteworthy for recent dyspnea and orthopnea symptoms. Gastrointestinal: Noncontributory. Constitutional: Noncontributory. Remainder of review of systems negative/noncontributory with 14 total systems reviewed. PHYSICAL EXAMINATION: General: Reveals an elderly white male in no distress, on room air. Vital Signs: Blood pressure 122/71, heart rate 94 and regular. Oxygen saturation 98% on room air. HEENT: Extraocular movements appear intact. Mucous membranes are moist. Neck: Supple, without significant jugular venous distention. Carotid bruits cannot be appreciated. Chest: Auscultation of the chest reveals a few faint inspiratory crackles in the bases bilaterally. Cardiac: Reveals a regular rate and rhythm without appreciable murmur or gallop. Abdomen: Soft. Bowel sounds are normal. Extremities: Demonstrate 2+ to 3+ low pretibial edema with venous stasis changes and bluish discoloration. Neurologic: Exam reveals him to be alert and fully oriented. Speech is fluent. Moves all 4 extremities equally well. Skin: Warm and dry. Psychiatric: Reveals mood to be appropriate. PERTINENT DATA: Twelve lead EKG demonstrates sinus rhythm with occasional premature atrial complex, left atrial abnormality, right bundle branch block and left anterior fascicular block. LABORATORY DATA: Includes a white blood cell count of 18.85, hematocrit 4i7.0, hemoglobin 15.2, platelet count 302,000. Sodium 144, potassium 4.1, chloride 101, carbon dioxide 26, BUN 44, creatinine 2.4, glucose 130. Initial CPK is 0.181, followup CPK is 0.115. Albumin 3.9. cc: MD Rene Garcia MD
--- NOTE | 2018-12-13 20:55 | NEPHROLOGY CONSULTATION ---
DATE: 12/13/2018 REASON FOR CONSULTATION: Acute overlying chronic kidney disease. HISTORY OF PRESENT ILLNESS: Mr. Peterson is an 83-year-old, white male, who was seen by Dr. Sharp earlier in the week because of shortness of breath. He subsequently came to the hospital because of chest and back pain. On my questioning, he stated these symptoms were rather chronic, but perhaps worse. He also had some complaint of lower extremity swelling for the last 1 to 2 weeks. His symptoms have not been relieved by Tylenol or Aleve. He took his Medrol Dosepak also without much impact on his symptoms, but he states he did have more fluid retention. On this basis, he came to the emergency room where his blood pressure was markedly elevated. Initial blood pressure was 210/134. This was treated effectively with medical therapy. His initial labs found his creatinine 2.6. Baseline creatinine 2.0. We were asked to assist with his management. PAST MEDICAL HISTORY: As above. HOME MEDICATIONS: Include gabapentin, fenofibrate, docusate, prednisone, amlodipine, aspirin, thiamine, metoprolol, quetiapine, amiodarone, losartan, tramadol. ALLERGIES: Latex. SOCIAL HISTORY: Former smoker. None currently. He takes oxycodone and uses alcohol. FAMILY HISTORY: Positive for coronary disease. Otherwise noncontributory. REVIEW OF SYSTEMS: Otherwise noncontributory. PHYSICAL EXAMINATION: Vital Signs: Blood pressure 122/71, heart rate 135, respiration 18, afebrile. General: No acute distress. Skin: Warm and dry. HEENT: Conjunctivae are pink. Pupils are equal. Oropharynx is clear. Normal tongue. Normal teeth. Neck: Supple. Trachea is midline. Neck vein distention is not present. Heart: Regular. Heart rate was not 135 at the time of my exam, in the 70s. Lungs: Have equal breath sounds. No crackles or wheezes. Abdomen: Soft, nontender. Bowel sounds present. Extremities: 1+ edema. No clubbing or cyanosis. IMPRESSION: Chronic kidney injury with possible overlying acute kidney injury pattern. We will check urine electrolytes, urine protein, etc. He is receiving low-dose furosemide based on his routine prescription. No changes required. He did receive a single dose of IV Lasix. His other medications are dosed appropriately and his blood pressure is improved. We will follow with you. cc: MD Rene Couch MD
[2018-12-13] MEDS: SEROQUEL PO SCH (21:15)
[2018-12-13] MEDS: COLACE PO SCH (21:15)
[2018-12-13] MEDS: NEURONTIN PO SCH (21:15)
[2018-12-14] MEDS: NITROGLYCERIN TOP SCH ×2 (03:00→09:36)
[2018-12-14 07:02] LABS: HEMATOCRIT 44.8 % (42.0-52.0); HEMOGLOBIN 14.5 g/dL (14.0-18.0); MCH 31.2 PG (27-31); MCHC 32.4 g/dL (33-37); MCV 96.3 FL (81-99); MPV 10.9 FL (7.4-10.4); RBC 4.65 XMIL (4.7-6.1); RDW 15.7 % (11.5-14.5)
[2018-12-14 07:10] LABS: ALBUMIN 3.5 g/dL (3.5-5.0); CALCIUM 9.1 mg/dL (8.8-10.2); CREATININE 2.4 mg/dL (0.7-1.2); PHOSPHORUS 3.5 mg/dL (2.7-4.5); POTASSIUM 3.9 mmol/L (3.5-5.1)
[2018-12-14] MEDS: ULTRAM PO PRN (07:22)
[2018-12-14] MEDS ORDERED: LASIX IV SCH (09:00)
[2018-12-14] MEDS: VITAMIN B-1 PO SCH (09:35)
[2018-12-14] MEDS: PREDNISONE PO SCH (09:35)
[2018-12-14] MEDS: TRICOR PO SCH (09:35)
[2018-12-14] MEDS: TOPROL XL PO SCH (09:35)
[2018-12-14] MEDS: CORDARONE PO SCH (09:35)
[2018-12-14] MEDS: ASPIRIN EC PO SCH (09:36)
[2018-12-14] MEDS: NORVASC PO SCH (09:36)
[2018-12-14] MEDS: XANAX XR PO SCH (09:49)
--- NOTE | 2018-12-14 10:39 | NEPHROLOGY PROGRESS NOTE ---
DATE: 12/14/2018 SUBJECTIVE: Patient is sitting up in a chair. He states that his breathing is significantly better from yesterday. OBJECTIVE: Vital Signs: Temperature 97.5 degrees, pulse 73, respiratory rate 18, blood pressure 121/63. Intake 690 mL. Output not measured. He is voiding. General: This is a elderly gentleman sitting up in a chair. He is awake and alert. He is in no acute distress. HEENT: Normocephalic, atraumatic. Conjunctivae pink. Oral mucosa moist. Neck: Supple with trace JVD. Cardiovascular: Regular rate and rhythm. Pulmonary: Continues with some rhonchi but no wheeze or rales. Abdomen: Soft, with positive bowel sounds. Genitourinary: Voiding. Extremities: He has 1+ edema up to the thighs. Integumentary: Skin is warm and dry. LABORATORY DATA: WBC of 12, hemoglobin 14.5, sodium 144, potassium 3.9, CO2 28, BUN 50 (44), creatinine 2.4 (2.4). ASSESSMENT AND PLAN: Chronic kidney disease with overlying acute kidney injury. He continues to receive Lasix. His renal function really is unchanged overnight. Clinically appears improved. We will continue his current treatment plan of Lasix daily with some fluid restriction, and intake and output documented. Dictated by JANET Cool for Stanley Perales MD Face to face encounter, data reviewed, discussed with Yari Lawson on 12/14/18. I agree with the above assessment and plan of care. cc: MD Rene Couch MD [facility] HOSPITALRuben
[2018-12-14 11:50] LABS: URINE SOURCE CLEAN CATCH
[2018-12-14 12:02] LABS: BILIRUBIN URINE NEGATIVE (NEGATIVE); BLOOD URINE NEGATIVE (NEGATIVE); COLOR YELLOW; GLUCOSE URINE NEGATIVE (NEGATIVE); KETONE URINE NEGATIVE (NEGATIVE); LEUKOCYTES URINE NEGATIVE (NEGATIVE); NITRITE URINE NEGATIVE (NEGATIVE); PH URINE 5.5; PROTEIN URINE 100 mg/dL (NEGATIVE); SP GRAVITY URINE 1.009; TURBIDITY URINE CLEAR (CLEAR); UROBILINOGEN URINE NORMAL (NORMAL)
[2018-12-14 12:05] LABS: UR EPITHELIAL CELLS <10 /HPF (<10); URINE BACTERIA NEGATIVE /HPF; URINE RBC <10 /HPF (<10); URINE WBC <10 /HPF (<10)
--- NOTE | 2018-12-14 13:15 | Diag Imaging Result Doc PS360 ---
EXAM: US RENAL 2 (RETROPER) COMPLETE 12/14/2018 HISTORY: decreased renal function TECHNIQUE: Renal ultrasound COMMENT: There is no evidence of hydronephrosis. The urinary bladder is unremarkable. The right kidney is 10 x 4.8 x 5.5 cm the left is 10.8 x 4 x 4.2 cm. There are multiple left renal cysts largest in the lower pole measuring 4.5 cm in greatest dimension. There is a 2.7 cm cyst anteriorly in the mid left kidney. There is a 2.3 cm cyst on the right side in the upper pole. There are no apparent solid masses. There is some lobulation of the renal cortices and increased echogenicity in a patchy distribution. There is no evidence of nephrolithiasis. IMPRESSION: No evidence of obstructive uropathy. The possibility of medical renal disease cannot be excluded. Electronically signed by Rudolph Arevalo 12/14/2018 1:13 PM
--- NOTE | 2018-12-14 13:34 | PROGRESS NOTE ---
DATE: 12/14/2018 SUBJECTIVE: I saw the patient yesterday after he had already been admitted but it had been after midnight so I did not leave a note. When I saw him yesterday, despite presenting with chest pain, he had a dip in his mouth and seemed to be very comfortable. He states that he had more shortness of breath and chest pain, and blamed it on the furosemide that I had given him that afternoon. He had no further chest pain. Overnight, the patient has done well. He had a dose of Lasix yesterday and did have some diuresis. He has no breathing complaints right now. He is scheduled to have IV Lasix this morning as well. OBJECTIVE: Vital Signs: 97.8, 79, 22, 169/87, 99% saturated on room air. Physical Examination: The patient is sitting up on the side of the bed, eating breakfast. He is not short of breath. He interacts meaningfully. Lungs are clear to auscultation in all mendoza. Cardiovascular is regular. Extremities: The patient has 2 to 3+ edema in the feet and rather brawny edema at the distal aspect of his pretibial area. He clearly has dependent edema down there. Neuropsychiatric: Baseline. Fluid balance -750. Laboratory: White cell count 12,000, hematocrit 44.8. Serum electrolytes are normal. BUN is 50, creatinine is 2.4. ASSESSMENT AND PLAN: 1. The patient was admitted with chronic ischemic disease and congestive failure based on his proBNP. He clearly had fluid overload but some of this was driven by the fact that his legs are almost always in a dependent position because of chronic lower back pain. He is scheduled in about a week to see Dr. Donn Brown to try and get shots in his back, which he hopes will help. Cardiology is following his respiratory and cardiovascular status. 2. Dr. Perales was consulted for acceleration in his chronic nephropathy. His BUN and creatinine are essentially the same as yesterday despite intravenous Lasix. I will continue to apply the Lasix very gingerly, given that fact. He is encouraged to elevate his feet and we will continue to monitor this. The patient had a renal ultrasound today. 3. I think the patient benefitted from some long-acting Xanax given yesterday. He has been increasingly more anxious with his back pain and his breathing as time has gone on. He will likely be discharged home on such. 4. Remainder of the medications have remained unchanged. He seems to be tolerating them well. At the present time, I do not have a projected time of discharge as I am waiting for certain data points to be filled in for our consultants and they will make recommendations going forward as well. cc: Rene Sharp MD
--- NOTE | 2018-12-14 15:32 | PROGRESS NOTE ---
DATE: 12/14/2018 SUBJECTIVE: Patient denies chest discomfort or shortness of breath. OBJECTIVE: Vital signs: Blood pressure 179/89, heart rate 72, oxygen saturation 100% on room air. Neck: Jugular venous distention cannot be appreciated. Chest: Clear to auscultation. Cardiac Exam: Reveals a regular rate and rhythm without appreciable murmur or gallop. Extremities: Demonstrate 2+ to 3+ low pretibial edema and ankle edema. LABORATORY DATA: Includes a white blood cell count 12.0, hematocrit 44.8, hemoglobin 14.5, platelet count 237,000. Sodium 144, potassium 3.9, chloride 102, carbon dioxide 28, BUN 50, creatinine 2.4, glucose 123, albumin 3.5. IMPRESSIONS: 1. Acute on chronic congestive heart failure with preserved left ventricular ejection fraction. Suspect excess sodium intake and chronic kidney disease playing a role. 2. Dependent edema. This seems to be aggravated by the patient's tendency to sleep sitting up due to his problems with spinal stenosis. 3. Hypertensive cardiovascular disease. Left ventricle ejection fraction normal. 4. Chronic kidney disease stage 4. 5. Paroxysmal atrial fibrillation. Patient continues in sinus rhythm on low-dose amiodarone. 6. Previous cerebrovascular accident. 7. Atherosclerotic carotid disease. RECOMMENDATIONS: 1. Continue cautious diuresis. 2. Elevate lower extremities as permitted and tolerated. 3. Switch metoprolol to carvedilol. cc: MD Rene Garcia MD
[2018-12-14] MEDS: LASIX PO SCH (16:06)
[2018-12-14] MEDS: COLACE PO SCH (22:47)
[2018-12-14] MEDS: COREG PO SCH (22:47)
[2018-12-14] MEDS: NEURONTIN PO SCH (22:48)
[2018-12-14] MEDS: SEROQUEL PO SCH (22:48)
[2018-12-15 06:47] LABS: HEMATOCRIT 44.7 % (42.0-52.0); HEMOGLOBIN 14.4 g/dL (14.0-18.0); MCHC 32.2 g/dL (33-37); MCV 96.3 FL (81-99); MPV 10.9 FL (7.4-10.4); RBC 4.64 XMIL (4.7-6.1); RDW 15.4 % (11.5-14.5); WBC 12.86 X1000 (4.8-10.8)
[2018-12-15] MEDS: ULTRAM PO PRN (07:03)
[2018-12-15 07:15] LABS: ALBUMIN 3.4 g/dL (3.5-5.0); CALCIUM 9.4 mg/dL (8.8-10.2); CREATININE 2.4 mg/dL (0.7-1.2); POTASSIUM 4.3 mmol/L (3.5-5.1)
[2018-12-15 07:59] VITALS: BP 191/93
[2018-12-15] MEDS: TRICOR PO SCH (08:43)
[2018-12-15] MEDS: NORVASC PO SCH (08:43)
[2018-12-15] MEDS: VITAMIN B-1 PO SCH (08:43)
[2018-12-15] MEDS: XANAX XR PO SCH (08:43)
[2018-12-15] MEDS: LASIX PO SCH (08:43)
[2018-12-15] MEDS: COREG PO SCH (08:44)
[2018-12-15] MEDS: PREDNISONE PO SCH (08:44)
[2018-12-15] MEDS: ASPIRIN EC PO SCH (08:44)
[2018-12-15] MEDS: CORDARONE PO SCH (08:44)
--- NOTE | 2018-12-15 10:33 | DISCHARGE SUMMARY ---
ADMISSION DATE: 12/13/2018 DISCHARGE DATE: 12/15/2018 DISCHARGE DIAGNOSES: 1. Localized edema in the lower extremities. 2. Generalized anxiety disorder. 3. Hypertension. 4. Chronic renal insufficiency stage 3. 5. Chronic diastolic congestive heart failure with acute exacerbation. 6. Alcoholism in remission. 7. Lumbar spinal stenosis with chronic lower back pain. CONSULTATIONS: Stanley Perales MD and Chente Marshall MD OPERATIVE PROCEDURES: None. HOSPITAL COURSE: An 83-year-old white male presented to the emergency room with shortness of breath after having been seen in the office on the same day. He had been prescribed a low dose of Lasix due to his swelling, and felt that he had some type of adverse reaction and got very anxious and short of breath. He also stated that he had some chest pain, and he did have some very mildly positive troponin's upon admission. The patient suffers from chronic lower back pain and is scheduled to see Dr. Brown on the of this month for some shots to help with that. The reason that that is relevant is that because of his back pain, he sits in a position all day and many times during the night with his feet in a dependent position which adds to the swelling in his lower extremities. Coupled with his mild diastolic congestive heart failure and his chronic renal insufficiency, he ends up with a fairly voluminous edema in his lower extremities. At his office visit prior to admission, he was advised to wear compression stockings and we put him on low-dose Lasix. He never got to the point where he was utilizing these, but was admitted before a reasonable trial had taken place. The patient is strongly encouraged to change his positioning to wear compression stockings, and he has been put on a low dose of Lasix. Also during the hospitalization, I instituted a low dose of alprazolam ER to help keep him calm. He seemed to tolerate this very well. Dr. Perales was consulted due to his renal insufficiency, and no major changes were instituted but at least will be able to follow up if necessary should his renal function continued to decline. Discussed at length with the patient and with his son about physical positioning in the home as well as salt and fluid restriction, and the prognosis of his renal insufficiency. They are both aware that there are limitations to how much fluid we can take off because of the somewhat precarious position that his kidneys are in at the present time. The patient was discharged home in good condition having achieved a solid negative fluid balance on the previous day. He was no longer short of breath and had no further chest pain. Follow-up will be in 2 weeks. cc: Rene Sharp MD
--- NOTE | 2018-12-18 14:47 | ECHO REPORT ---
ORDER DATE: 12/13/2018 INTERPRETING PHYSICIAN: Dr. Wander Paz. ECHOCARDIOGRAPHIC MEASUREMENTS: Interventricular septum: 1.1 cm. Left ventricular posterior wall: 1.3 cm. Diastolic diameter: 5.3 cm. SUMMARY OF THE 2-DIMENSIONAL IMAGING: This is a limited 2D echocardiogram. 1. Aortic valve leaflets were trileaflet. Mitral valve was normal. Tricuspid valve was normal. Pulmonic valve was normal. 2. Normal left ventricular cavity size, concentric left ventricular hypertrophy. Estimated ejection fraction of 55%. 3. There is no pericardial effusion. cc: MD Chente Hanley MD Timothy P. Weirich, MD
== END 2018-12-15 10:17 | disposition home or self-care (01) | DRG 291 ==
LOC: SUPCPDRO → ED 18:25 → EDIPHOLD 12-13 01:17 → SUATTDRO 12-13 01:17 → 4N 12-13 07:50
PROVIDERS: ADMIT Internal Medicine; ATTEND Internal Medicine
CPT/HCPCS: 71020; 71046; 76770; 80053; 80069; 80196; 80307; 80324; 80329; 81001; 82003; 82550; 82570; 82805; 83036; 83735; 83880; 84156; 84484; 85025; 85027; 85610; 85730; 93005; 93306; 93308; 94761; 94799; 96365; 96375; 96376; 99285; A9270; G0480; G6038; G6039; J0696; J1940; J7506; J7512